=== PATIENT | female | born 1965 | race Caucasian/White ===

== ENCOUNTER 2019-09-06 09:52 | Outpatient (CLI) | payer BC | END 2019-09-06 10:00 | disposition home or self-care (01) | LOC: LAB 09:52 | DX: D64.89 Other specified anemias (principal); E78.2 Mixed hyperlipidemia; R73.09 Other abnormal glucose; E03.8 Other specified hypothyroidism; E56.9 Vitamin deficiency, unspecified; E55.9 Vitamin D deficiency, unspecified ==